=== PATIENT | male | born 1990 | race Caucasian/White ===

== ENCOUNTER 2018-10-27 10:54 | Emergency (ER) | payer OTHER ==
[~2018-10-27] VITALS: Ht 177.8 cm; Wt 75.0 kg
[2018-10-27 11:02] VITALS: BP 125/77; PULSE 99; RESP 16; Ht 177.8 cm; Wt 75.0 kg
--- NOTE | 2018-10-27 11:20 | ERD ---
ER Documentation Chief Complaint Chief Complaint FELT ANXIOUS AND SOB WHILE IN [employer]. NO COMPLAINTS NOW. HPI Is a 28-year-old male who presents for evaluation of medical clearance. Patient was arrested by police today, he felt very anxious, as he had a prior 9-year history in [facility], and did not want to go back. At that time he had shortness of breath, however this is now resolved. He has no cardiac history, and he has no other medical problems. ROS All systems reviewed and are negative except as per history of present illness. PMhx/Soc History of Surgery: No Anesthesia Reaction: No Hx Neurological Disorder: No Hx Respiratory Disorders: No Hx Cardiac Disorders: No Hx Psychiatric Problems: No Hx Miscellaneous Medical Probl: No Hx Alcohol Use: No Hx Substance Use: No Hx Tobacco Use: No Smoking Status: Never smoker FmHx Family History: No diabetes Physical Exam Vitals Vital Signs Date Temp Pulse Resp B/P (MAP) Pulse Ox O2 O2 Flow FiO2 Time Delivery Rate 10/27/18 98.6 99 16 125/77 98 11:02 (93) Physical Exam Const: No acute distress Head: Atraumatic Eyes: Normal Conjunctiva ENT: Normal External Ears, Nose and Mouth. Neck: Full range of motion. No meningismus. Resp: Clear to auscultation bilaterally Cardio: Regular rate and rhythm, no murmurs Abd: Soft, non tender, non distended. Normal bowel sounds Skin: No petechiae or rashes Back: No midline or flank tenderness Ext: No cyanosis, or edema Neur: Awake and alert Psych: Normal Mood and Affect Procedures/MDM This is a 28-year-old male presents for an episode of anxiety. This episode was brief and situational, now he feels much better, I do not suspect cardiopulmonary etiology such as acute coronary syndrome, pulmonary embolism, or other acute emergency. The patient is medically cleared. He will be discharged with police. Departure Diagnosis: Primary Impression: Anxiety Condition: Stable Patient Instructions: Anxiety Reaction Additional Instructions: Okay to SCAR Hernandez MD Oct 27, 2018 11:20
== END 2018-10-27 11:24 | disposition home or self-care (01) ==
LOC: E/R 10:54
DX: F41.9 Anxiety disorder, unspecified (principal)
CPT/HCPCS: 99283